=== PATIENT | male | born 1995 | race Caucasian/White ===

== ENCOUNTER 2017-10-13 03:29 | Emergency (ER) | payer SELFPAY ==
[2017-10-13] MEDS ORDERED: TETANUS & DIPHTHERIA TOX,ADULT 0.5 ML VIAL ONE (03:50)
[2017-10-13] MEDS ORDERED: HYDROCODONE/APAP 10/325 TAB ONE (03:57)
[2017-10-13] MEDS ORDERED: MUPIROCIN 2% OINT 22GM TUBE TOP ONE (03:58)
[2017-10-13] MEDS ORDERED: SMZ./TMP. 800/160 MG TABLET ONE (03:58)
[2017-10-13] MEDS ORDERED: DOXYCYCLINE 100 MG CAP PO ONE (03:58)
[2017-10-13] MEDS ORDERED: KETOROLAC 30 MG/ML INJ ONE (03:58)
--- NOTE | 2017-10-13 03:58 | ER ---
Nurse's Notes [facility] Name: Michi Kapoor Age: 22 yrs Sex: Male : 1995 Arrival Date: 10/13/2017 Time: 03:34 Bed 5 Private MD: Diagnosis: Pain in left knee-BURSITIS Presentation: 10/13 03:42 Presenting complaint: Patient states: left knee pain after hiking yesterday. pt with ak1 pain at 2200 before bed. pt woke with increased pain at 0200. Transition of care: patient was not received from another setting of care. Onset of symptoms was October 12, 2017. Initial Sepsis Screen: Does the patient meet any 2 criteria? No. Patient's initial sepsis screen is negative. Does the patient have a suspected source of infection? No. Patient's initial sepsis screen is negative. Care prior to arrival: None. 03:42 Method Of Arrival: Wheelchair ak1 03:42 Acuity: KIM 4 ak1 Triage Assessment: 03:44 General: Appears uncomfortable, slender, Behavior is cooperative, restless. Pain: ak1 Complains of pain in posterior aspect of left knee and left knee. EENT: No signs and/or symptoms were reported regarding the EENT system. Neuro: No deficits noted. Cardiovascular: No deficits noted. Respiratory: No deficits noted. GI: No signs and/or symptoms were reported involving the gastrointestinal system. : No signs and/or symptoms were reported regarding the genitourinary system. Derm: Abscess located on left knee is pen head size is raised. Musculoskeletal: Range of motion: limited in left knee Swelling present in left knee Reports pain in posterior aspect of left knee and left knee since 2200 10/12/17. Historical: - Allergies: 03:44 No Known Allergies; ak1 - Home Meds: 03:44 None [Active]; ak1 - PMHx: 03:44 None; ak1 - PSHx: 03:44 None; ak1 - Immunization history:: Adult Immunizations unknown, Last tetanus immunization: unknown. - Social history:: Smoking status: Patient uses tobacco products, smokes one pack cigarettes per day. - Family history:: not pertinent. Screenin:47 Abuse screen: Denies threats or abuse. Denies injuries from another. Nutritional ak1 screening: No deficits noted. Tuberculosis screening: No symptoms or risk factors identified. Fall Risk Gait- Weak (10 pts.). Assessment: 04:13 Reassessment: Patient appears in no apparent distress at this time. No changes from ak1 previously documented assessment. Patient is alert, oriented x 3, equal unlabored respirations, skin warm/dry/pink. see triage assessment. Vital Signs: 03:44 BP 132 / 59; Pulse 67; Resp 20; Temp 98.7(O); Pulse Ox 100% on R/A; Weight 84.82 kg ak1 (R); Height 6 ft. 4 in. (193.04 cm) (R); Pain 10/10; 03:44 Body Mass Index 22.76 (84.82 kg, 193.04 cm) ak1 ED Course: 03:34 Patient arrived in ED. do 03:36 Yaya Marin MD is Attending Physician. [facility] 03:43 Triage completed. ak1 03:44 Arm band placed on Patient placed in an exam room, on a stretcher, on pulse oximetry, ak1 Patient notified of wait time. 03:48 Patient has correct armband on for positive identification. Bed in low position. Call ak1 light in reach. Side rails up X 1. Adult w/ patient. Pulse ox on. NIBP on. 03:54 Liliya Escobar RN is Primary Nurse. ak1 03:56 Kosta Solis MD is Referral Physician. jen 04:12 Knee Left 3 View XRAY Sent. ak1 04:13 No provider procedures requiring assistance completed. Patient did not have IV access ak1 during this emergency room visit. 04:15 X-ray completed. Portable x-ray completed in exam room. Patient tolerated procedure kw well. 04:16 Knee Left 3 View XRAY In Process Unspecified. 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 Exp: ak1 01/19/2020. Lot #: [id number]. } Route: IM; Site: right deltoid; 04:11 Follow up: Response: No adverse reaction ak1 04:10 Drug: Doxycycline 100 mg Route: PO; ak1 04:12 Follow up: Response: No adverse reaction ak1 04:10 Drug: Bactroban Ointment 2 % 1 application Route: Topical; Site: wound; ak1 04:10 Drug: TORadol 60 mg Route: IM; Site: right gluteus; ak1 04:12 Follow up: Response: No adverse reaction ak1 04:10 Drug: [place] 10 mg-325 mg 1 tabs Route: PO; ak1 04:12 Follow up: Response: No adverse reaction ak1 04:11 Drug: Bactrim (160 mg-800 mg (DS) 1 tablet Route: PO; ak1 04:12 Follow up: Response: No adverse reaction ak1 Outcome: 03:58 Discharge ordered by . jen 04:13 Condition: stable ak1 04:36 Discharged to home via wheelchair, with crutches, with family. ak1 04:36 Discharge instructions given to patient, family, Instructed on discharge instructions, follow up and referral plans. no drinking with medication, no driving heavy equipment, medication usage, crutch walking, wound care, Demonstrated understanding of instructions, follow-up care, medications, wound care, crutch walking, splint care, Prescriptions given X 5 04:41 Patient left the ED. ak1 Signatures: Dispatcher [employer] EDYaya Gonzales MD MD cha Whitley, Kimberlee kw Krenek, Amber, RN RN ak1 Rosita Puente do
--- NOTE | 2017-10-13 03:58 | EDPHYS ---
Physician Documentation [facility] Name: Michi Kapoor Age: 22 yrs Sex: Male : 1995 Arrival Date: 10/13/2017 Time: 03:34 Bed 5 Private MD: ED Physician Yaya Marin HPI: 10/13 03:52 This 22 yrs old Male presents to ER via Wheelchair with complaints of Knee jen Pain, Knee Swelling. 03:52 The patient presents with decreased range of motion, an injury, pain, swelling, jen tenderness. The complaints affect the left knee. Context: The problem was sustained outdoors, resulted from a direct blow, the patient can partially bear weight, must have assistance, Problem is a result from a previous injury: No. Onset: The symptoms/episode began/occurred 2 day(s) ago. Modifying factors: The symptoms are alleviated by elevating leg, remaining still, the symptoms are aggravated by movement, bending knee. Associated signs and symptoms: Pertinent positives: swelling, warmth. Treatment prior to arrival includes: no previous treatment. Severity of symptoms: At their worst the symptoms were moderate, in the emergency department the symptoms are unchanged. The patient has not experienced similar symptoms in the past. Historical: - Allergies: 03:44 No Known Allergies; ak1 - Home Meds: 03:44 None [Active]; ak1 - PMHx: 03:44 None; ak1 - PSHx: 03:44 None; ak1 - Immunization history:: Adult Immunizations unknown, Last tetanus immunization: unknown. - Social history:: Smoking status: Patient uses tobacco products, smokes one pack cigarettes per day. - Family history:: not pertinent. ROS: 03:52 Constitutional: Negative for fever, chills, and weight loss, Eyes: Negative for injury, jen pain, redness, and discharge, ENT: Negative for injury, pain, and discharge, Neck: Negative for injury, pain, and swelling, Cardiovascular: Negative for chest pain, palpitations, and edema, Respiratory: Negative for shortness of breath, cough, wheezing, and pleuritic chest pain, Abdomen/GI: Negative for abdominal pain, nausea, vomiting, diarrhea, and constipation, Back: Negative for injury and pain, : Negative for injury, bleeding, discharge, and swelling, Skin: Negative for injury, rash, and discoloration, Neuro: Negative for headache, weakness, numbness, tingling, and seizure, Psych: Negative for depression, anxiety, suicide ideation, homicidal ideation, and hallucinations, Allergy/Immunology: Negative for hives, rash, and allergies, Endocrine: Negative for neck swelling, polydipsia, polyuria, polyphagia, and marked weight changes, Hematologic/Lymphatic: Negative for swollen nodes, abnormal bleeding, and unusual bruising. 03:52 MS/extremity: Positive for decreased range of motion, pain, swelling, tenderness, of the left knee. Exam: 03:52 Constitutional: This is a well developed, well nourished patient who is awake, alert, jen and in no acute distress. Head/Face: Normocephalic, atraumatic. Eyes: Pupils equal round and reactive to light, extra-ocular motions intact. Lids and lashes normal. Conjunctiva and sclera are non-icteric and not injected. Cornea within normal limits. Periorbital areas with no swelling, redness, or edema. ENT: Nares patent. No nasal discharge, no septal abnormalities noted. Tympanic membranes are normal and external auditory canals are clear. Oropharynx with no redness, swelling, or masses, exudates, or evidence of obstruction, uvula midline. Mucous membranes moist. Neck: Trachea midline, no thyromegaly or masses palpated, and no cervical lymphadenopathy. Supple, full range of motion without nuchal rigidity, or vertebral point tenderness. No Meningismus. Chest/axilla: Normal chest wall appearance and motion. Nontender with no deformity. No lesions are appreciated. Cardiovascular: Regular rate and rhythm with a normal S1 and S2. No gallops, murmurs, or rubs. Normal PMI, no JVD. No pulse deficits. Respiratory: Lungs have equal breath sounds bilaterally, clear to auscultation and percussion. No rales, rhonchi or wheezes noted. No increased work of breathing, no retractions or nasal flaring. Abdomen/GI: Soft, non-tender, with normal bowel sounds. No distension or tympany. No guarding or rebound. No evidence of tenderness throughout. Back: No spinal tenderness. No costovertebral tenderness. Full range of motion. Male : Normal genitalia with no discharge or lesions. Skin: Warm, dry with normal turgor. Normal color with no rashes, no lesions, and no evidence of cellulitis. Neuro: Awake and alert, GCS 15, oriented to person, place, time, and situation. Cranial nerves II-XII grossly intact. Motor strength 5/5 in all extremities. Sensory grossly intact. Cerebellar exam normal. Normal gait. Psych: Awake, alert, with orientation to person, place and time. Behavior, mood, and affect are within normal limits. 03:52 Musculoskeletal/extremity: ROM: limited active range of motion, limited passive range of motion, Pulses: are normal with no appreciated deficits, noted to be 4+ in the bilateral radial, brachial, femoral, popliteal, posterior tibial and and dorsalis pedis arteries., Severe pain noted. Compartment Syndrome exam of affected extremity: is normal. DVT Exam: negative Homans' sign noted on exam, no appreciated bluish discoloration, no erythema, no increased warmth, pain, swelling, tenderness. 03:59 Musculoskeletal/extremity: NORMAL PASSIVE ROM , PAIN ON ACTIVE ROM. [facility] Vital Signs: 03:44 BP 132 / 59; Pulse 67; Resp 20; Temp 98.7(O); Pulse Ox 100% on R/A; Weight 84.82 kg ak1 (R); Height 6 ft. 4 in. (193.04 cm) (R); Pain 10/10; 03:44 Body Mass Index 22.76 (84.82 kg, 193.04 cm) [facility] MDM: 03:36 Patient medically screened. [facility] 03:52 Data reviewed: vital signs, nurses notes, radiologic studies, plain films. [facility] 10/13 03:51 Order name: Knee Left 3 View X[address] [facility] 10/13 03:51 Order name: Crutches; Complete Time: 04:[address] [facility] 10/13 03:51 Order name: Knee Immobilizer; Complete Time: 04:[address] 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 Exp: ak1 01/19/2020. Lot #: [id number]. } Route: IM; Site: right deltoid; 04:11 Follow up: Response: No adverse reaction ak1 04:10 Drug: Doxycycline 100 mg Route: PO; ak1 04:12 Follow up: Response: No adverse reaction ak1 04:10 Drug: Bactroban Ointment 2 % 1 application Route: Topical; Site: wound; ak1 04:10 Drug: TORadol 60 mg Route: IM; Site: right gluteus; ak1 04:12 Follow up: Response: No adverse reaction ak1 04:10 Drug: [place] 10 mg-325 mg 1 tabs Route: PO; ak1 04:12 Follow up: Response: No adverse reaction ak1 04:11 Drug: Bactrim (160 mg-800 mg (DS) 1 tablet Route: PO; ak1 04:12 Follow up: Response: No adverse reaction ak1 Disposition: 10/13/17 03:58 Discharged to Home. Impression: Pain in left knee - BURSITIS. - Condition is Stable. - Discharge Instructions: Bursitis, Knee Bracing, Knee Pain, Bursitis, [id number]. - Prescriptions for Bactroban 2 % Topical Ointment - Apply to affected area 1 application by TOPICAL route every 12 hours; 30 gram. Ibuprofen 600 mg Oral Tablet - take 1 tablet by ORAL route every 6 hours As needed take with food; 21 tablet. Tylenol- Codeine #3 300-30 mg Oral Tablet - take 2 tablet by ORAL route every 6 hours As needed; 30 tablet. Doxycycline Hyclate 100 mg Oral Tablet - take 1 tablet by ORAL route every 12 hours; 20 tablet. Bactrim DS 800- 160 mg Oral Tablet - take 1 tablet by ORAL route every 12 hours for 10 days; 20 tablet. - Medication Reconciliation Form, Thank You Letter, Antibiotic Education, Prescription Opioid Use, Work release form, Family Work Release form. - Follow up: Private Physician; When: 2 - 3 days; Reason: Recheck today's complaints, Continuance of care, Re-evaluation by your physician. Follow up: Kosta Solis MD; When: 2 - 3 days; Reason: Recheck today's complaints, Continuance of care, Re-evaluation by your physician. - Problem is new. - Symptoms have improved. Signatures: Dispatcher [employer] Yaya Merino MD MD cha Krenek, Amber, RN RN ak1
--- NOTE | 2017-10-13 09:21 | RAD REPORT ---
EXAM DESCRIPTION: RAD - Knee Left 3 View - 10/13/2017 4:18 am CLINICAL HISTORY: Left knee pain FINDINGS: No fracture or dislocation is seen. No bone or joint abnormality is seen
== END 2017-10-13 04:41 | disposition home or self-care (01) ==
LOC: ER 03:29
DX: M71.9 Bursopathy, unspecified (principal); F17.210 Nicotine dependence, cigarettes, uncomplicated
CPT/HCPCS: 90714; 96372; 99284

== ENCOUNTER 2017-11-19 00:16 | Emergency (ER) | payer SELFPAY ==
[2017-11-19] MEDS ORDERED: LIDOCAINE 1% MPF 2 ML AMPULE ONE (00:38)
[2017-11-19] MEDS ORDERED: TETANUS & DIPHTHERIA TOX,ADULT 0.5 ML VIAL ONE (00:42)
--- NOTE | 2017-11-19 02:11 | ER ---
Nurse's Notes [facility] Name: Michi Kapoor Age: 22 yrs Sex: Male : 1995 Arrival Date: 11/19/2017 Time: 00:24 Bed 23 Private MD: Diagnosis: Laceration without foreign body of right hand Presentation: 11/19 00:26 Presenting complaint: Patient states: laceration to left lazo surface of his hand tl3 with a filet knife. Transition of care: patient was not received from another setting of care. Complicating Factors: There are no complicating factors for this patient. Onset of symptoms was November 19, 2017. Risk Assessment: Do you want to hurt yourself or someone else? Patient reports no desire to harm self or others. Initial Sepsis Screen: Does the patient meet any 2 criteria? No. Patient's initial sepsis screen is negative. Does the patient have a suspected source of infection? No. Patient's initial sepsis screen is negative. Care prior to arrival: None. 00:26 Method Of Arrival: Ambulatory tl3 00:26 Acuity: KIM 4 tl3 Triage Assessment: 00:28 General: Appears in no apparent distress. Behavior is cooperative. Pain: Pain currently tl3 is 4 out of 10 on a pain scale. Historical: - PMHx: 00:28 None; tl3 - PSHx: 00:28 None; tl3 - Immunization history:: Adult Immunizations up to date. - Social history:: Smoking status: Patient uses tobacco products, smokes one pack cigarettes per day. - Ebola Screening: : Patient denies travel to an Ebola-affected area in the 21 days before illness onset. Screenin:53 Abuse screen: Denies threats or abuse. Denies injuries from another. Nutritional eb1 screening: No deficits noted. Tuberculosis screening: No symptoms or risk factors identified. Fall Risk None identified. Assessment: 00:47 General: Appears in no apparent distress. comfortable, slender, well groomed, well eb1 developed, well nourished, Behavior is calm, cooperative, appropriate for age, Patient states they cut themselves with a fishing knife. . Pain: Complains of pain in heel of right hand Pain currently is 4 out of 10 on a pain scale. Quality of pain is described as burning, sharp, Pain began 1 hour ago. Neuro: No deficits noted. Level of Consciousness is awake, alert, obeys commands, Oriented to person, place, time. Cardiovascular: No deficits noted. Heart tones present Capillary refill < 3 seconds Pulses are all present. Rhythm is regular. Respiratory: No deficits noted. Airway is patent Breath sounds are clear bilaterally. GI: No deficits noted. Abdomen is flat, non-distended, Bowel sounds present X 4 quads. Abd is soft and non tender X 4 quads. : No deficits noted. EENT: No deficits noted. Derm: No deficits noted. Musculoskeletal: Capillary refill < 3 seconds. Injury Description: Laceration sustained to heel of right hand is contaminated, was sustained 30-60 minutes ago. is bleeding a small amount. Vital Signs: 00:28 BP 146 / 74; Pulse 103; Resp 18; Temp 98.6; Pulse Ox 97% ; Weight 77.11 kg; Height 6 tl3 ft. 4 in. (193.04 cm); 01:45 BP 138 / 72; Pulse 98; Resp 20; Temp 98.4; Pulse Ox 100% ; eb1 00:28 Body Mass Index 20.69 (77.11 kg, 193.04 cm) tl3 ED Course: 00:24 Patient arrived in ED. es 00:27 Triage completed. tl3 00:28 Arm band placed on right wrist. tl3 00:33 Chino Pires NP is PHCP. pm1 00:33 Gibran Doung MD is Attending Physician. pm1 00:53 No provider procedures requiring assistance completed. eb1 00:54 Patient has correct armband on for positive identification. Bed in low position. Call eb1 light in reach. Side rails up X 1. 02:24 Patient did not have IV access during this emergency room visit. 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 Exp: eb1 02/16/2020. Lot #: [id number]. } Route: IM; Site: left deltoid; 02:14 Follow up: Response: No adverse reaction eb1 02:15 Drug: Lidocaine (1 %) 5 ml Volume: 5 ml; Route: Infiltration; Site: affected area; eb1 02:22 Drug: Doxycycline 100 mg Route: PO; eb1 02:22 Follow up: Response: Other eb1 02:23 Follow up: given at discharge eb1 02:23 Drug: traMADol 50 mg Route: PO; eb1 02:23 Follow up: Response: given at discharge eb1 Intake: Outcome: 00:53 Condition: good eb1 02:11 Discharge ordered by . pm1 02:24 Discharge instructions given to patient, Instructed on discharge instructions, eb1 medication usage, wound care, Demonstrated understanding of instructions, medications, wound care, Prescriptions given X 2. 02:24 Discharged to home ambulatory, with family, with friend. eb1 02:25 Patient left the ED. eb1 Signatures: Mily Nolen Patrick, NP [employer] MEMBER pm1 Kenna Tapia RN RN tl3 Charito Lr RN RN eb1
--- NOTE | 2017-11-19 02:11 | EDPHYS ---
Physician Documentation [facility] Name: Michi Kapoor Age: 22 yrs Sex: Male : 1995 Arrival Date: 11/19/2017 Time: 00:24 Bed 23 Private MD: ED Physician Gibran Duong HPI: 11/19 02:00 This 22 yrs old Male presents to ER via Ambulatory with complaints of pm1 Laceration To Right Hand. 02:00 The patient has a laceration occurred at home, and Dirty knife used for cutting bait pm1 fish. 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 The laceration(s) is(are) located on the heel of right hand. Onset: The symptoms/episode began/occurred 3 hour(s) ago. Associated signs and symptoms: Pertinent negatives: deformity, dizziness, heavy bleeding, numbness distal to injury, suspected foreign body. The patient has not recently seen a physician. Historical: - PMHx: 00:28 None; tl3 - PSHx: 00:28 None; tl3 - Immunization history:: Adult Immunizations up to date. - Social history:: Smoking status: Patient uses tobacco products, smokes one pack cigarettes per day. - Ebola Screening: : Patient denies travel to an Ebola-affected area in the 21 days before illness onset. ROS: 02:00 Constitutional: Negative for fever, chills, and weight loss, Eyes: Negative for injury, pm1 pain, redness, and discharge, ENT: Negative for injury, pain, and discharge, Neck: Negative for injury, pain, and swelling, Cardiovascular: Negative for chest pain, palpitations, and edema, Respiratory: Negative for shortness of breath, cough, wheezing, and pleuritic chest pain, Abdomen/GI: Negative for abdominal pain, nausea, vomiting, diarrhea, and constipation, Back: Negative for injury and pain, MS/Extremity: Negative for injury and deformity. 02:00 Neuro: Negative for headache, weakness, numbness, tingling, and seizure. 02:00 Skin: Positive for laceration(s), of the heel of right hand. Exam: 02:00 Constitutional: This is a well developed, well nourished patient who is awake, alert, pm1 and in no acute distress. Head/Face: Normocephalic, atraumatic. Eyes: Pupils equal round and reactive to light, extra-ocular motions intact. Lids and lashes normal. Conjunctiva and sclera are non-icteric and not injected. Cornea within normal limits. Periorbital areas with no swelling, redness, or edema. ENT: Nares patent. No nasal discharge, no septal abnormalities noted. Tympanic membranes are normal and external auditory canals are clear. Oropharynx with no redness, swelling, or masses, exudates, or evidence of obstruction, uvula midline. Mucous membranes moist. Neck: Trachea midline, no thyromegaly or masses palpated, and no cervical lymphadenopathy. Supple, full range of motion without nuchal rigidity, or vertebral point tenderness. No Meningismus. Chest/axilla: Normal chest wall appearance and motion. Nontender with no deformity. No lesions are appreciated. Cardiovascular: Regular rate and rhythm with a normal S1 and S2. No gallops, murmurs, or rubs. Normal PMI, no JVD. No pulse deficits. Respiratory: Lungs have equal breath sounds bilaterally, clear to auscultation and percussion. No rales, rhonchi or wheezes noted. No increased work of breathing, no retractions or nasal flaring. Abdomen/GI: Soft, non-tender, with normal bowel sounds. No distension or tympany. No guarding or rebound. No evidence of tenderness throughout. Back: No spinal tenderness. No costovertebral tenderness. Full range of motion. 02:00 MS/ Extremity: Pulses equal, no cyanosis. Neurovascular intact. Full, normal range of motion. 02:00 Skin: injury, laceration(s), the wound is approximately 2 cm(s), with a depth of 0.5 cm(s), of the heel of right hand. 02:00 Neuro: Orientation: is normal, Motor: is normal, moves all fours, strength is normal, strength is 5/5 in all extremities, Full range of motion with fingers to right hand. Vital Signs: 00:28 BP 146 / 74; Pulse 103; Resp 18; Temp 98.6; Pulse Ox 97% ; Weight 77.11 kg; Height 6 tl3 ft. 4 in. (193.04 cm); 01:45 BP 138 / 72; Pulse 98; Resp 20; Temp 98.4; Pulse Ox 100% ; eb1 00:28 Body Mass Index 20.69 (77.11 kg, 193.04 cm) tl3 Laceration: 02:09 Wound Repair of 2cm ( 0.8in ) subcutaneous laceration to heel of right hand. Linear pm1 shaped.. Distal neuro/vascular/tendon intact. Anesthesia: Local anesthetic administered with 2 mls of 1% lidocaine. Wound prep: Extensive cleansing with betadine by me, Wound irrigation with saline by me, Wound explored extensively, Copious irrigation. Skin closed with 5 4-0 Prolene using simple sutures and sterile technique. Dressed with Neosporin, 4x4's, Kerlix. Patient tolerated well. MDM: 00:34 Patient medically screened. pm1 02:09 Data reviewed: vital signs. Data interpreted: Pulse oximetry: on room air is 97 %. pm1 Interpretation:. Counseling: I had a detailed discussion with the patient and/or guardian regarding: the historical points, exam findings, and any diagnostic results supporting the discharge/admit diagnosis, the need for outpatient follow up, to return to the emergency department if symptoms worsen or persist or if there are any questions or concerns that arise at home. 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 Exp: eb1 02/16/2020. Lot #: [id number]. } Route: IM; Site: left deltoid; 02:14 Follow up: Response: No adverse reaction eb1 02:15 Drug: Lidocaine (1 %) 5 ml Volume: 5 ml; Route: Infiltration; Site: affected area; eb1 02:22 Drug: Doxycycline 100 mg Route: PO; eb1 02:22 Follow up: Response: Other eb1 02:23 Follow up: given at discharge eb1 02:23 Drug: traMADol 50 mg Route: PO; eb1 02:23 Follow up: Response: given at discharge eb1 Disposition: 04:34 Co-signature as Attending Physician, Gibran Duong MD I agree with the assessment and tw4 plan of care. Disposition: 11/19/17 02:11 Discharged to Home. Impression: Laceration without foreign body of right hand. - Condition is Stable. - Discharge Instructions: Laceration Care, Adult. - Prescriptions for Doxycycline Hyclate 100 mg Oral Tablet - take 1 tablet by ORAL route every 12 hours; 20 tablet. Tramadol 50 mg Oral Tablet - take 1 tablet by ORAL route every 8 hours as needed; 12 tablet. - Medication Reconciliation Form, Thank You Letter, Antibiotic Education, Prescription Opioid Use form. - Follow up: Emergency Department; When: As needed; Reason: Worsening of condition. Follow up: Private Physician; When: 10 - 14 days; Reason: Wound Recheck, Recheck today's complaints, Continuance of care, Staple/Suture removal, Re-evaluation by your physician. - Problem is new. - Symptoms have improved. 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 Impression: Laceration without foreign body eb1 of right hand. Condition is Stable. Forms are Medication Reconciliation Form, Thank You Letter, Antibiotic Education, Prescription Opioid Use. Follow up: Emergency Department; When: As needed; Reason: Worsening of condition. Follow up: Private Physician; When: 10 - 14 days; Reason: Wound Recheck, Recheck today's complaints, Continuance of care, Staple/Suture removal, Re-evaluation by your physician. Problem is new. Symptoms have improved. pm1
[2017-11-19] MEDS ORDERED: TRAMADOL HCL 50 MG TAB ONE (02:20)
[2017-11-19] MEDS ORDERED: DOXYCYCLINE 100 MG CAP PO ONE (02:21)
== END 2017-11-19 02:25 | disposition home or self-care (01) ==
LOC: ER 00:16
PROC: 0JQJ0ZZ Repair Right Hand Subcutaneous Tissue and Fascia, Open Approach (ICD-10-PCS; principal; 2017-11-19)
DX: S61.411A Laceration without foreign body of right hand, initial encounter (principal); W26.0XXA Contact with knife, initial encounter; Y93.89 Activity, other specified; Y92.009 Unspecified place in unspecified non-institutional (private) residence as the place of occurrence of the external cause; Z23 Encounter for immunization; F17.210 Nicotine dependence, cigarettes, uncomplicated
CPT/HCPCS: 90714; 99283; J2001